=== PATIENT | female | born 1980 | race African-American/Black ===

== ENCOUNTER 2023-10-15 18:55 | Emergency (ER) | payer MEDICAID ==
[~2023-10-15] VITALS: Ht 175.3 cm; Wt 86.0 kg
[2023-10-15 19:04] VITALS: TEMP 98; O2SAT 99
[2023-10-15] MEDS ORDERED: OFLO5DRO4 RIGHT EAR (19:54)
[2023-10-15 20:10] VITALS: BP 107/59; PULSE 65; RESP 16
== END 2023-10-15 20:12 | disposition home or self-care (01) ==
LOC: ER 18:55
DX: H69.81 Other specified disorders of Eustachian tube, right ear (principal); H83.8X1 Other specified diseases of right inner ear; J45.909 Unspecified asthma, uncomplicated; Z98.890 Other specified postprocedural states
CPT/HCPCS: 99283

== ENCOUNTER 2023-11-15 08:30 | Emergency (ER) | payer MEDICAID ==
[~2023-11-15] VITALS: Ht 167.6 cm; Wt 79.0 kg
[~2023-11-15 08:30] MED LIST: OFLO5DRO4 RIGHT EAR
[2023-11-15 08:34] VITALS: O2SAT 100
[2023-11-15] MEDS: ONDANSETRON 4MG ODT PO ONE (08:54)
[2023-11-15 09:03] LABS: BASOPHILS % 1.7 % (0.0-2.0); EOSINOPHILS % 3.1 % (0.0-5.0); HEMATOCRIT. 43.2 % (36.0-48.0); HEMOGLOBIN. 14.2 g/dL (12.0-16.0); LYMPHOCYTES % 35.3 % (20.0-50.0); MEAN CORPUSCULAR HEMOGLOBIN 31.2 pg (28.0-32.0); MEAN CORPUSCULAR VOLUME 94.7 fL (81.0-99.0); MONOCYTES % 9.9 % (2.0-8.0); PLATELET 278 x1000/uL (130-400); RED BLOOD CELL COUNT 4.56 mill/uL (4.2-5.4); RED CELL DISTRIBUTION WIDTH 12.6 % (11.6-14.6); WHITE BLOOD COUNT 5.4 x1000/uL (4.5-11.0)
[2023-11-15 09:07] LABS: CHLORIDE 109 mEq/L (98-107); POTASSIUM 4.3 mEq/L (3.5-5.1); SODIUM 139 mEq/L (136-145)
[2023-11-15 09:08] LABS: CALCIUM 8.8 mg/dL (8.7-10.4); CARBON DIOXIDE 28 mEq/L (21-32); INR 0.9; PROTHROMBIN TIME 9.9 sec (9.6-11.0)
[2023-11-15 09:11] LABS: HCG SCREEN NEGATIVE
[2023-11-15 09:13] LABS: CREATININE 0.6 mg/dL (0.6-1.0); GLUCOSE 88 mg/dL (70-105); UREA NITROGEN BLOOD 9 mg/dL (9-23)
[2023-11-15 09:15] LABS: ALANINE AMINOTRANSFERASE 17 IU/L (10-49); ALBUMIN 4.4 g/dL (3.2-4.8); ASPARTATE AMINOTRANSFERASE 20 IU/L (<34); BILIRUBIN DIRECT 0.1 mg/dL (<=3.0); BILIRUBIN TOTAL 0.5 mg/dL (0.1-1.0); PROTEIN TOTAL 7.2 g/dL (6.0-8.3)
[2023-11-15 09:40] LABS: CLARITY URINE CLOUDY (CLEAR); COLOR URINE RED (YELLOW); GLUCOSE URINE NEGATIVE (NEGATIVE); KETONES URINE NEGATIVE (NEGATIVE); LEUKOCYTE ESTERASE URINE TRACE (NEGATIVE); NITRITE URINE NEGATIVE (NEGATIVE); OCCULT BLOOD URINE 3+ (NEGATIVE); PH URINE 7.5 (4.5-8.0); PROTEIN URINE TRACE (NEGATIVE); SPECIFIC GRAVITY URINE 1.011 (1.005-1.030); UROBILINOGEN URINE 0.2 E.U./dL (0.2-1.0)
[2023-11-15 10:13] LABS: BACTERIA URINE 1+; RBC URINE TNTC /hpf (0-2); SQUAMOUS EPITHELIAL CELL URINE 1+ /lpf (RARE/1+); YEAST URINE NONE SEEN
[2023-11-15] MEDS: LIDOCAINE 5% PATCH TOP STA (10:50)
[2023-11-15] MEDS ORDERED: METH-653 MT (11:37)
[2023-11-15] MEDS ORDERED: LIDO700A15 TP (11:37)
[2023-11-15] MEDS ORDERED: IBUP-2028 MT (11:37)
[2023-11-15 11:55] VITALS: TEMP 36.78072; O2SAT 100
[2023-11-15 11:57] VITALS: BP 116/78; PULSE 72; RESP 18
[2023-11-15] MEDS: METHOCARBAMOL 750MG TABLET PO SCH (11:57)
[2023-11-15] MEDS: KETOROLAC 30MG/ML VIAL IM ONE (11:57)
== END 2023-11-15 12:07 | disposition home or self-care (01) ==
LOC: ER 08:30
DX: M54.16 Radiculopathy, lumbar region (principal); M54.30 Sciatica, unspecified side; J45.909 Unspecified asthma, uncomplicated; Z98.890 Other specified postprocedural states
CPT/HCPCS: 80076; 80048; 81003; 81025; 84703; 83690; 85025; 85610; 36415; 74176; 96372; 99285; Q0162; J1885; Z7610